=== PATIENT | male | born 1945 | race Caucasian/White ===

== ENCOUNTER 2016-09-12 09:07 | Emergency (ER) | payer OTHER ==
[~2016-09-12] VITALS: Ht 160 cm; Wt 72.0 kg
[2016-09-12 09:13] VITALS: Ht 160 cm; Wt 72.0 kg
[2016-09-12] MEDS ORDERED: IBUPROFEN 600 MG TAB PO ONE (10:30)
--- NOTE | 2016-09-12 11:13 | RADRPT ---
PROCEDURE: XR Chest. CLINICAL INDICATION: Syncope TECHNIQUE: Anterior chest x-ray. COMPARISON: None. FINDINGS: Lung markings are mildly prominent. The lungs are otherwise clear. No pleural effusion identified. There is no evidence of pneumothorax. The cardiomediastinal silhouette is unremarkable. The soft tissues are normal. Healed fracture deformities of right posterior fourth through sixth ribs are noted. Moderate degenerative change in the lumbar spine is noted. IMPRESSION: 1. No acute disease is seen in the chest. RPTAT: QQ .Jerry Sue MD, MD Date Time Electronically viewed and signed by .Jerry Sue MD, on 09/12/2016 11:12 .M/
[2016-09-12 11:28] LABS: CHLORIDE 102 mmol/L (97-110)
[2016-09-12 11:29] LABS: POTASSIUM 4.9 mmol/L (3.5-5.1); SODIUM 140 mmol/L (135-144)
[2016-09-12 11:31] LABS: ANION GAP 18 (8-16); CARBON DIOXIDE 25 mmol/L (21-31); CREATININE 1.06 mg/dl (0.61-1.24)
[2016-09-12 11:32] LABS: BLOOD UREA NITROGEN 21 mg/dl (7-20); CALCIUM 8.9 mg/dl (8.4-10.2); GLUCOSE 138 mg/dl (70-220)
[2016-09-12 11:35] LABS: HEMATOCRIT 46.4 % (42.0-52.0); HEMOGLOBIN 15.8 g/dl (14.0-18.0); MEAN CORPUSCULAR HEMOGLOBIN 33.2 pg (29.0-33.0); MEAN CORPUSCULAR HGB CONC 34.1 g/dl (32.0-37.0); MEAN CORPUSCULAR VOLUME 97.5 fl (82.0-101.0); MEAN PLATELET VOLUME 10.3 fl (7.4-10.4); PLATELET COUNT 190 10^3/UL (140-440); RED BLOOD COUNT 4.76 10^6/ul (4.70-6.10); RED CELL DISTRIBUTION WIDTH 12.8 % (11.5-14.5); WHITE BLOOD COUNT 7.1 10^3/ul (4.8-10.8)
[2016-09-12 11:36] LABS: BASOPHIL # 0.1 10^3/ul (0.0-0.1); BASOPHILS % 0.7 % (0.0-2.0); EOSINOPHILS # 0.1 10^3/ul (0.0-0.5); EOSINOPHILS % 1.6 % (0.0-7.0); LYMPHOCYTES # 1.7 10^3/ul (0.8-2.9); LYMPHOCYTES % 23.7 % (15.0-51.0); MONOCYTE # 0.9 10^3/ul (0.3-0.9); MONOCYTES % 12.1 % (0.0-11.0); NEUTROPHIL # 4.4 10^3/ul (1.6-7.5); NEUTROPHILS % 61.5 % (39.0-77.0)
[2016-09-12 11:42] LABS: TROPONIN-I < 0.012 ng/ml (0.00-0.12)
[2016-09-12] MEDS ORDERED: TRAM50TA2 PO (12:31)
--- NOTE | 2016-09-12 12:36 | ERD ---
ER Documentation Chief Complaint Date/Time DATE: 09/12/16 TIME: 12:33 Chief Complaint trip and fall 3 days ago now c/o chest pain radiates to back HPI 71-year-old male presents the emergency room complaining of right-sided chest wall pain. Patient states that 3 days ago he had a mechanical trip and fall. He did not lose consciousness but has no definitive cause as to why he fell. He fell down onto the right side of his chest has been having pain in that area since that time. He reports a pleuritic discomfort in the right side of the chest with no hemoptysis. Patient currently reports no fevers chills or sputum production. Patient has no other traumatic or medical complaints. ROS All systems reviewed and are negative except as per history of present illness. Medications Home Meds Active Scripts Tramadol HCl (Tramadol HCl) 50 Mg Tablet, 50 MG PO BID, #60 TAB Prov:YESICA MONET 09/12/16 Allergies Allergies: Coded Allergies: No Known Allergy (Unverified , 09/12/16) PMhx/Soc Medical and Surgical Hx: pt denies Medical Hx, pt denies Surgical Hx Hx Alcohol Use: No Hx Substance Use: No Hx Tobacco Use: No Smoking Status: Never smoker FmHx Noncontributory for chief complaint Physical Exam Vitals Vital Signs Date Time Temp Pulse Resp B/P Pulse Ox O2 Delivery O2 Flow Rate FiO2 09/12/16 09:13 98.1 69 18 195/80 97 Physical Exam General: well developed, well nourished in no acute distress HEENT: scalp atraumatic with no laceration or evidence of skull fracture; no signs of basilar skull fracture. Face symmetric, stable and atraumatic minimal abrasion about the face Neck: Full range of motion without discomfort or neurologic symptoms, no midline cervical spine tenderness, step-off, or evidence of significant trauma CV: Regular rate, rhythm, no murmurs appreciated Lungs: Clear to auscultation bilaterally with no chest wall trauma appreciated, chest wall stable with no crepitus. There is chest wall tenderness on the right -hand side Abdomen: soft, atraumatic and non-tender in all 4 quadrants Extremities: atraumatic with no bony tenderness or deformity in all 4 extremities, full range of motion throughout all joints; pelvis stable to both AP and lateral compression, small skin tear in the right upper extremity Back: no thoracic or lumbar midline tenderness, no step-off or evidence of significant trauma Neurologic: awake, alert and oriented, pupils equal, round and reactive to light , face symmetric, tongue midline, moving all extremities with equal and normal strength, sensory exam grossly non-focal Result Diagram: 09/12/16 1030 09/12/16 1030 Results 24 hrs Laboratory Tests Test 09/12/16 10:30 Anion Gap 18 Basophils # 0.110^3/ul Basophils % 0.7% Blood Urea Nitrogen 21mg/dl Calcium Level 8.9mg/dl Carbon Dioxide Level 25mmol/L Chloride Level 102mmol/L Creatinine 1.06mg/dl Eosinophils # 0.110^3/ul Eosinophils % 1.6% Glucose Level 138mg/dl Hematocrit 46.4% Hemoglobin 15.8g/dl Lymphocytes # 1.710^3/ul Lymphocytes % 23.7% Mean Corpuscular Hemoglobin 33.2pg Mean Corpuscular Hemoglobin Concent 34.1g/dl Mean Corpuscular Volume 97.5fl Mean Platelet Volume 10.3fl Monocytes # 0.910^3/ul Monocytes % 12.1% Neutrophils # 4.410^3/ul Neutrophils % 61.5% Nucleated Red Blood Cells # 0.010^3/ul Nucleated Red Blood Cells % 0.0/100WBC Platelet Count 04354^3/UL Potassium Level 4.9mmol/L Red Blood Count 4.7610^6/ul Red Cell Distribution Width 12.8% Sodium Level 140mmol/L Troponin I < 0.012ng/ml White Blood Count 7.110^3/ul Current Medications Medications (Trade) Dose Ordered Sig/Maddie Route PRN Reason Start Time Stop Time Status Last Admin Dose Admin Ibuprofen (Motrin) 600 mg ONCE ONCE PO 09/12/16 10:30 09/12/16 10:31 DC 09/12/16 10:54 Procedures/MDM Patient was taken to a room, seen and evaluated. Comfort measures were initiated. Diagnostic tests were ordered and reviewed. 3 LEAD RHYTHM STRIP: Normal sinus rhythm without ectopy EK lead EKG reviewed by myself: Normal Sinus Rhythm Right bundle branch block No ST elevation, depression, or T wave inversion Impression: Right bundle branch block with nonspecific changes RADIOLOGY: reviewed with the radiologist REEVALUATION: Patient remained comfortable and stable in the emergency room MEDICAL DECISION MAKING: Patient presents after a fall. From a trauma standpoint, patient has been evaluated for significant injury. Patient shows no signs of significant intrathoracic intra-abdominal neurologic or orthopedic trauma. His injuries appear to be soft tissue in nature From a medical standpoint, the fall seems to be related to a geriatric syndrome with multiple causes. I have reviewed medications and evaluated the patient for infection, electrolyte concerns, ischemia and other acute medical concerns. Patient shows no evidence of decompensated medical disease at this time with no significant acute medical symptoms and no obvious cause of the fall From a social standpoint, the patient has been evaluated for safety. Patient is ambulatory without difficulty and able to express a care plan for himself he certainly seems stable and appropriate for discharge Departure Diagnosis: Primary Impression: Fall Additional Impression: Chest wall contusion Condition: Stable Patient Instructions: Chest Wall Contusion, Fall, Mechanical Referrals: EMMA WILLAMS (PCP) Additional Instructions: Please see your doctor for a recheck in 2-3 days YESICA MONET Sep 12, 2016 12:35
== END 2016-09-12 12:44 | disposition home or self-care (01) ==
LOC: E/R 09:07
DX: S20.211A Contusion of right front wall of thorax, initial encounter (principal); W01.0XXA Fall on same level from slipping, tripping and stumbling without subsequent striking against object, initial encounter; Y92.9 Unspecified place or not applicable
CPT/HCPCS: 36415; 71010; 80048; 84484; 85025; 93005

== ENCOUNTER 2016-09-17 05:27 | Emergency (ER) | payer OTHER ==
[~2016-09-17] VITALS: Ht 170.2 cm; Wt 70.5 kg
[~2016-09-17 05:27] MED LIST: TRAM50TA2 PO
[2016-09-17 05:30] VITALS: Ht 170.2 cm; Wt 70.5 kg
[2016-09-17] MEDS ORDERED: KETOROLAC 30 MG INJ IM STA (06:05)
[2016-09-17] MEDS ORDERED: HYDROCODONE/APAP (5/325) TAB PO ONE (06:30)
--- NOTE | 2016-09-17 07:38 | RADRPT ---
PROCEDURE: CT Chest without contrast. CLINICAL INDICATION: Trauma TECHNIQUE: Spiral CT images through the chest without contrast. Coronal and sagittal reformatted images were obtained from the axial source images. The total exam CTDI equals 13.13 mGy and the tota l exam DLP equals 506.06 mGy-cm. One or more of the following dose reduction techniques were used: a utomated exposure control, adjustment of the mA and/or kV according to patient size, or use of itera tive reconstruction technique. COMPARISON: 09/12/2016 FINDINGS: Dependent subsegmental atelectasis of the lungs is present. There are scattered nonspecific patchy subpleural alveolar opacities throughout both lungs. No pneumothorax or definite pulmonary contusio n is seen. Aortic and coronary artery calcification is seen. The heart size is top normal. No def inite hilar, mediastinal, or axillary adenopathy is seen. Calcified subcarinal nodes are seen. Vis ualized portions of the upper abdomen are unremarkable. There is degenerative change of the spine. Degenerative change of the shoulders is also seen. There are acute fractures of the right lateral fourth through sixth ribs. Subtle fractures of the right lateral 3rd and 7th ribs also appear to be present. The fifth rib fracture is slightly depressed. Multiple old right rib fractures are also pr esent. No left rib fractures are seen. IMPRESSION: Fractures of the right lateral third through seventh ribs. Slight displacement of the right fifth r ib fracture. No other definite acute abnormality. Scattered nonspecific subpleural ground-glass op acities throughout the lung thompson bilaterally but no definite evidence for pulmonary contusion/aleksandar linda or pneumothorax. RPTAT: HLBE Physician Scott Date Time Electronically viewed and signed by Physician Scott on 09/17/2016 07:37 LE/
[2016-09-17] MEDS ORDERED: DOCU-144 PO (07:54)
[2016-09-17] MEDS ORDERED: HYDR-906 PO (07:54)
--- NOTE | 2016-09-17 08:28 | RADRPT ---
PROCEDURE: CT thoracic spine CLINICAL INDICATION: Trauma TECHNIQUE: Thin section spiral CT images through the thoracic spine without contrast. Multiplanar reconstructions. The CTDIvol is 26.83 mGy and the DLP is 1104.66 mGycm. COMPARISON: None FINDINGS: There are degenerative and hypertrophic changes of the thoracic spine with osteophytes and minimal e ndplate irregularities throughout. No fracture or significant listhesis is seen. No lytic or blast ic bony lesion is seen. Calcified left hilar node is seen. Atherosclerotic calcification is seen. Calcified subcarinal nodes. IMPRESSION: Degenerative change. No definite fracture or significant listhesis. RPTAT: HLBE Physician Scott Date Time Electronically viewed and signed by Alexia Bartlett Physician on 09/17/2016 08:28 HI/
--- NOTE | 2016-09-17 08:33 | RADRPT ---
PROCEDURE: CT cervical spine without contrast. CLINICAL INDICATION: Fall, neck pain TECHNIQUE: CT of the cervical spine without contrast was performed on a multidetector CT scanner, w ith multiplanar reformats. One or more of the following dose reduction techniques were used: Automa pranav exposure control, adjustment in mA and / or kV according to patient size, use of iterative recon structive technique. CTDIvol = 22 mGy and DLP = 538 mGy-cm. COMPARISON: None available. FINDINGS: No fracture or dislocation is identified. There is preservation of the lordosis of the cervical spi ne. Alignment is intact. Vertebral bodies are grossly maintained in height. There are anterior a tlantoaxial joint degenerative changes and anterior spondylosis at C4-5 through C6-7. Atherosclerot ic calcifications are noted. A chronic infarct is identified in the right temporal - occipital lobe in the MACHINERY ENGINEER territory. C2-3: The disc is maintained in height. There is posterior disk bulging without central canal steno sis or foraminal narrowing C3-4: The disc is maintained in height. There is a posterior disk/osteophyte and ligamentum flavum hypertrophy with mild central canal stenosis. There are uncovertebral osteophytes and facet arthrop athy with moderate to severe right, moderate left foraminal narrowing. C4-5: The disc is maintained in height. There is posterior disk osteophyte and ligamentum flavum hy pertrophy with mild to moderate central canal stenosis. There are uncovertebral osteophytes and fac et arthropathy with mild right, moderate left foraminal narrowing. C5-6: There is mild - moderate disk space narrowing. There is a posterior disk/osteophyte and ligam entum flavum hypertrophy with mild to moderate central canal stenosis. There are uncovertebral oste ophytes and facet arthropathy with moderate to severe right, mild-moderate left foraminal narrowing. C6-7: The disc is maintained in height. There is posterior disk osteophyte with mild central canal stenosis. There is no foraminal narrowing. C7-T1: The disc is maintained in height. No gross disk bulge or herniation is seen. There is facet arthropathy. There is no central canal stenosis or foraminal narrowing. IMPRESSION: 1. No evidence of fracture or dislocation. 2. Cervical spondylosis, with multilevel mild - moderate central canal stenoses, and multilevel for aminal narrowing outlined in detail above. 3. Chronic right temporal-occipital, MACHINERY ENGINEER territory infarct noted. RPTAT: VV .Humberto Schrader MD, Date Time Electronically viewed and signed by .Humberto Schrader MD, on 09/17/2016 08:32 .O/
--- NOTE | 2016-09-17 08:41 | ERD ---
ER Documentation Chief Complaint Date/Time DATE: 09/17/16 TIME: 08:38 Chief Complaint sp trip & fall 3 days ago landing on R side of chest, was here , back pain HPI 8-year-old male sustained a mechanical fall 3 days ago. He was seen here and had normal chest x-ray. Complains of persistent and severe pain on the right upper chest as well as the upper back. Denies any hemoptysis, shortness breath , fevers, blood. He is taking ibuprofen and tramadol without relief. ROS All systems reviewed and are negative except as per history of present illness. Medications Home Meds Active Scripts Docusate Sodium* (Colace*) 100 Mg Capsule, 100 MG PO BID, #30 CAP Prov:MALIK ESTRADA MD 09/17/16 Hydrocodone/Acetaminophen ([place] 5-325 Tablet) 1 Each Tablet, 1 TAB PO Q6H Y for PAIN, #18 TAB Prov:MALIK ESTRADA MD 09/17/16 Tramadol HCl (Tramadol HCl) 50 Mg Tablet, 50 MG PO BID, #60 TAB Prov:YESICA MONET 09/12/16 Allergies Allergies: Coded Allergies: No Known Allergy (Unverified , 09/12/16) PMhx/Soc Medical and Surgical Hx: pt denies Medical Hx, pt denies Surgical Hx History of Surgery: No Anesthesia Reaction: No Hx Neurological Disorder: No Hx Respiratory Disorders: No Hx Cardiac Disorders: Yes (HTN) Hx Psychiatric Problems: No Hx Miscellaneous Medical Probl: Yes (DM, BPH) Hx Alcohol Use: No Hx Substance Use: No Hx Tobacco Use: No Physical Exam Vitals Vital Signs Date Time Temp Pulse Resp B/P Pulse Ox O2 Delivery O2 Flow Rate FiO2 09/17/16 05:30 97.5 64 20 168/86 99 Physical Exam Const: [] Alert, [id number]. Head: Atraumatic Eyes: Normal Conjunctiva ENT: Normal External Ears, Nose and Mouth. Neck: Full range of motion..~ No meningismus. Resp: Clear to auscultation bilaterally. Tenderness in the right lateral anterior chest wall and upper back. No crepitance or erythema or deformities appreciated. Cardio: Regular rate and rhythm, no murmurs Abd: Soft, non tender, non distended. Normal bowel sounds Skin: No petechiae or rashes Back: No midline or flank tenderness Ext: No cyanosis, or edema Neur: Awake and alert Psych: Normal Mood and Affect Results 24 hrs Current Medications Medications (Trade) Dose Ordered Sig/Maddie Route PRN Reason Start Time Stop Time Status Last Admin Dose Admin Acetaminophen/ Hydrocodone Bitart ([place] (5/325)) 1 tab ONCE ONCE PO 09/17/16 06:30 09/17/16 06:31 DC 09/17/16 06:45 Ketorolac Tromethamine (Toradol) 30 mg ONCE STAT IM 09/17/16 06:05 09/17/16 06:08 DC 09/17/16 06:46 Procedures/MDM EKG: Rate/Rhythm: [Normal Sinus Rhythm] rate equals 56 QRS, ST, T-waves: [No changes consistent w/ acute ischemia] Impression: [No evidence of ischemia or arrhythmia]. Impression no acute findings on EKG CT of the chest shows fractures of the third through seventh ribs no significant displacement except for [address] cervical spine shows no fractures or dislocation CT thoracic spine shows no fracture dislocation. Patient was given [place] 5 mg by mouth and Toradol 30 mg IM. Patient has multiple rib fractures in the right side without complications of hemothorax,, pneumonia, pneumothorax, or secondary infection. Patient will be discharged home with a prescription of [place] and Colace instructions to follow- up his primary care doctor. Patient is advised to return for fevers, blood, shortness breath, new or worsening symptoms. The patient was stable with no new complaints during the ER course. Clinically, there is no current evidence to suggest meningitis, sepsis, acute abdomen, pneumonia, acute coronary syndrome , pulmonary embolism, or any other emergent condition appearing to require further evaluation or hospitalization. The patient should certainly return for any new or worsening symptoms per the aftercare instructions. They should otherwise follow-up with her primary care doctor for reevaluation this week. Departure Diagnosis: Primary Impression: Ribs, multiple fractures Encounter type: initial encounter Fracture type: closed Laterality: right Qualified Code: S22.41XA - Closed fracture of multiple ribs of right side, initial encounter Condition: Stable Patient Instructions: Rib Fracture (Broken Rib) Referrals: [facility] (PCP) Additional Instructions: TINENE 6 FRACTURAS EN COSTILLOS . REGRESA PARA FIEBRE, LEISA , NUEVA SIMPTOMAS O CON BRAN DOCTOR. MALIK ESTRADA MD Sep 17, 2016 08:40
== END 2016-09-17 08:49 | disposition home or self-care (01) ==
LOC: FTE 05:27
DX: S22.41XA Multiple fractures of ribs, right side, initial encounter for closed fracture (principal); I10 Essential (primary) hypertension; E11.9 Type 2 diabetes mellitus without complications; W18.39XA Other fall on same level, initial encounter; Y92.9 Unspecified place or not applicable
CPT/HCPCS: 71250; 72125; 72128; 93005; J1885; 96372

== ENCOUNTER 2016-12-23 06:49 | Emergency (ER) | payer OTHER ==
[~2016-12-23] VITALS: Ht 160 cm; Wt 71.0 kg
[~2016-12-23 06:49] MED LIST changes: +DOCU-144 PO; +HYDR-906 PO
[2016-12-23 06:53] VITALS: Ht 160 cm; Wt 71.0 kg
[2016-12-23] MEDS ORDERED: CEPH-443 PO (07:07)
[2016-12-23] MEDS ORDERED: SULF1TAB31 PO (07:07)
[2016-12-23] MEDS ORDERED: BEN25 PO (07:08)
--- NOTE | 2016-12-23 07:11 | ERD ---
ER Documentation Chief Complaint Date/Time DATE: 12/23/16 TIME: 07:10 Chief Complaint left ear abcess HPI Patient is a 71 year old male with PMHx of DM, HTN, HLD who presents to the ED for concerns of L ear abscess. Patient reports erythematous swollen bump to L lower ear lobe. Patient reports minimal pain. Patient denies any bleeding or discharge. Patient denies any fever or chills. Patient denies any possible insect bites. Patient does report itching. Patient denies any chest pain, shortness of breath, headaches, blurry vision, nausea, vomiting or LOC. Patient denies taking BP medications this morning. Patient states he rushed to ED to avoid wait times, thus he did not take his AM BP medications. ROS All systems reviewed and are negative except as per history of present illness. Medications Home Meds Active Scripts Diphenhydramine Hcl* (Benadryl*) 25 Mg Cap, 25 MG PO Q6, #20 CAP Prov:SHORTY WESTFALL PA-C 12/23/16 Cephalexin* (Keflex*) 500 Mg Capsule, 500 MG PO QID for 10 Days, CAP Prov:SHORTY WESTFALL PA-C 12/23/16 Sulfamethoxazole/Trimethoprim* (Bactrim Ds* Tablet) 1 Each Tablet, 1 TAB PO BID , #10 TAB Prov:SHORTY WESTFALL PA-C 12/23/16 Docusate Sodium* (Colace*) 100 Mg Capsule, 100 MG PO BID, #30 CAP Prov:MALIK ESTRADA MD 09/17/16 Hydrocodone/Acetaminophen ([place] 5-325 Tablet) 1 Each Tablet, 1 TAB PO Q6H Y for PAIN, #18 TAB Prov:MALIK ESTRADA MD 09/17/16 Tramadol HCl (Tramadol HCl) 50 Mg Tablet, 50 MG PO BID, #60 TAB Prov:YESICA MONET 09/12/16 Allergies Allergies: Coded Allergies: No Known Allergy (Unverified , 09/12/16) PMhx/Soc Medical and Surgical Hx: pt denies Surgical Hx History of Surgery: No Anesthesia Reaction: No Hx Neurological Disorder: No Hx Respiratory Disorders: No Hx Cardiac Disorders: Yes (HTN, HDL) Hx Psychiatric Problems: No Hx Miscellaneous Medical Probl: Yes (DM) Hx Alcohol Use: Yes (1-2 DRINKS/DAY) Hx Substance Use: No Hx Tobacco Use: Yes (10 CIGS/DAY) Smoking Status: Current every day smoker Physical Exam Vitals Vital Signs Date Time Temp Pulse Resp B/P Pulse Ox O2 Delivery O2 Flow Rate FiO2 12/23/16 08:04 98.4 78 16 207/91 99 Room Air 12/23/16 06:53 97.1 75 18 189/72 99 Physical Exam GENERAL: Well-developed, well-nourished male. Appears in no acute distress. HEAD: Normocephalic, atraumatic. EYES: Pupils are equally reactive bilaterally. EOMs grossly intact. No conjunctival erythema. ENT: Left external lower lobe noted to have 2 cm well defined, slightly erythematous, circular mass. Indurated. No fluctuance or warmth noted. Auditory canals clear bilaterally. No hemotympanium. TM visualized bilaterally, non- erythematous, non-bulging. Nasal septum midline. Nasal mucosa pink with no discharge. Turbinates normal. Oropharynx is pink without any tonsillar erythema or exudates. NECK: Supple. No meningismus. Normal range of motion of the neck. LUNG: Clear to auscultation bilaterally. No rhonchi, wheezing, rales or coarse breath sounds. HEART: Regular rate and rhythm. No murmurs, rubs or gallops. BACK: No midline tenderness. EXTREMITIES: Equal pulses bilaterally. No peripheral clubbing, cyanosis or edema. No unilateral leg swelling. NEUROLOGIC: Alert and oriented. Moving all four extremities without any difficulty. Normal speech. Steady gait. SKIN: Normal color. Warm and dry. No rashes or lesions. Procedures/MDM MEDICAL DECISION MAKING: This is a 71 year old male with past medical history of DM, HTN, HLD who presents with concerns of L ear abscess.. Vital signs were reviewed. Patient was afebrile. Skin exam revealed possible abscess with no areas of fluctuance noted. Incision and drainage was noted indicated at this time. Given these findings, the patients presentation is most consistent with abscess of left lower ear lobe. I have a much lower clinical concern for necrotizing fasciitis, sepsis, gangrene, Avinash-Nam syndrome, toxic epidural necrolysis, herpes zoster, viral exanthem, anaphylaxis, al fungal infection, insect bite, impetigo , dermatitis. PRESCRIPTIONS: Keflex, Bactrim, Benadryl DISCHARGE: At this time, patient is stable for discharge and outpatient management. Warm compresses advised to affected area. Wound recheck advised in 2 days. Will consider incision and drainage at that time. I have advised the patient to avoid any new products, creams or possible allergens. I have advised the patient to avoid scratching affected area. I have instructed the patient to follow-up with his/her primary care physician in 1-2 days. If symptoms persist, patient may need to see a property management supervisor for further examinations and testing. I have instructed the patient to promptly return to the ER at any time for any new or worsening symptoms including increased pain, fever, redness, swelling, warmth, difficulty breathing or vomiting. The patient and/or family expressed understanding of and agreement with this plan. All questions were answered. Home care instructions were provided. Patient's blood pressure was elevated (>120/80) but appears stable without evidence of hypertensive emergency, hypertensive urgency or end-organ failure. I had discussion with the patient about the risks of hypertension. I have advised the patient to follow up with his/her primary care physician for outpatient monitoring and treatment for hypertension in 2-3 days. I have instructed the patient to return to the ER for any new or worsening symptoms including chest pain, shortness of breath, headache, blurred vision, confusion, nausea, vomiting or LOC. Departure Diagnosis: Primary Impression: Abscess Additional Impression: Elevated blood pressure reading Condition: Stable Patient Instructions: Abscess, Antiobiotic Treatment Only Referrals: [facility] (PCP) Additional Instructions: Call your primary care doctor TOMORROW for an appointment during the next 1-2 days.See the doctor sooner or return here if your condition worsens before your appointment time. Return to the ER in 2 days for wound recheck. SHORTY WESTFALL PA-C December 23, 2016 07:11
[2016-12-23 08:04] VITALS: BP 207/91; PULSE 78; RESP 16; TEMP 98.4
== END 2016-12-23 08:05 | disposition home or self-care (01) ==
LOC: FTE 06:49
DX: H60.02 Abscess of left external ear (principal); I10 Essential (primary) hypertension; E11.9 Type 2 diabetes mellitus without complications; F17.210 Nicotine dependence, cigarettes, uncomplicated
CPT/HCPCS: 99284

== ENCOUNTER 2017-06-19 10:11 | Emergency (ER) | END 2017-06-19 12:47 | disposition home or self-care (01) | DX: H92.02 Otalgia, left ear (principal); I16.0 Hypertensive urgency; I10 Essential (primary) hypertension; E11.9 Type 2 diabetes mellitus without complications; F17.210 Nicotine dependence, cigarettes, uncomplicated; R51 Headache; R07.9 Chest pain, unspecified | CPT/HCPCS: 70450; 80053; 83880; 84484; 85025; 85610; 85730; 93005; 96374; 96375; 99285; J0360; J1200; J2270; J2405 ==

== ENCOUNTER 2017-07-23 12:45 | Emergency (ER) | payer OTHER ==
[~2017-07-23] VITALS: Ht 172.7 cm; Wt 69.9 kg
[~2017-07-23 12:45] MED LIST changes: +AMOX500C2 PO; +BEN50 PO; -DOCU-144 PO; -HYDR-906 PO; +MED4DP PO; +METO-319 PO; -TRAM50TA2 PO
[2017-07-23 12:47] VITALS: Ht 172.7 cm; Wt 69.9 kg
[2017-07-23] MEDS ORDERED: HC30CR25 TOP (14:42)
--- NOTE | 2017-07-23 15:08 | ERD ---
ER Documentation Chief Complaint Chief Complaint Patient here for medication refill HPI 72-year-old male complaining of itchy skin on the ears and scalp. Patient is presenting for request of medication refill from his previous visit. Patient's previous visit was due to ear pain and was a discharge of otitis media. Patient was given amoxicillin and Medrol Dosepak. Patient denies any ear pain at this time. Patient is only complaining of pruritic sensation to the skin around the ears. Patient does not use any medications on his skin. ROS All systems reviewed and are negative except as per history of present illness. Medications Home Meds Active Scripts Hydrocortisone* Topical (Hydrocortisone* Topical) 2.5%-28.3 Gm Cream..g., 1 APPLIC TOP BID, #1 TUB Prov:AR DAVID PA-C 07/23/17 Methylprednisolone* (Medrol* DOSE PACK) 4 Mg/Dose-Pack Tab.ds.pk, 4 MG PO . DIRECTED, #1 PACKET Prov:JONNY PALACIOS 06/19/17 Diphenhydramine Hcl* (Benadryl*) 50 Mg Cap, 50 MG PO Q6 Y for ITCHING, #20 CAP Prov:JONNY PALACIOS 06/19/17 Amoxicillin* (Amoxicillin*) 500 Mg Cap, 500 MG PO BID for 10 Days, #30 CAP Prov:JONNY PALACIOS 06/19/17 Reported Medications Metoprolol Succinate* (Toprol XL*) 50 Mg Tab.er.24h, 50 MG PO DAILY, #30 TAB 06/19/17 Allergies Allergies: Coded Allergies: No Known Allergy (Unverified , 09/12/16) PMhx/Soc History of Surgery: No Anesthesia Reaction: No Hx Neurological Disorder: No Hx Respiratory Disorders: No Hx Cardiac Disorders: Yes (HTN, HDL) Hx Psychiatric Problems: No Hx Miscellaneous Medical Probl: Yes (DM) Hx Alcohol Use: Yes (1-2 DRINKS/DAY) Hx Substance Use: No Hx Tobacco Use: Yes (10 CIGS/DAY) Smoking Status: Current every day smoker Physical Exam Vitals Vital Signs Date Time Temp Pulse Resp B/P Pulse Ox O2 Delivery O2 Flow Rate FiO2 07/23/17 12:47 98.2 84 20 155/79 98 Physical Exam GENERAL: The patient is well-appearing, well-nourished, in no acute distress HEENT: Atraumatic. Conjunctivae are pink. Pupils equal, round, and reactive to light. There is no scleral icterus. Tympanic membranes clear bilaterally. Oropharynx clear. No nystagmus or photophobia. NECK: C-spine is soft and supple. There is no meningismus. There is no cervical lymphadenopathy. CHEST: Clear to auscultation bilaterally. There are no rales, wheezes or rhonchi. HEART: Regular rate and rhythm. No murmurs, clicks, rubs or gallops. No S3 or S4. SKIN: Scaling skin around ears. No vesicles. No pustules. No foreign bodies. Procedures/MDM MDM: 72-year-old male presenting for itchy skin. I believe patient is experiencing CAT scan and would benefit from increased moisturizing use and hydrocortisone. Patient is told symptoms change or worsen to return to the ER immediately. I do not feel the patient's medications from previous visit should be refilled. Patient does not have signs of otitis media on exam. Patient is discharged with strict ER precautions and recommended to follow-up with PMD within 1-2 days for close evaluation. All questions answered at discharge Departure Diagnosis: Primary Impression: Chapped skin Condition: Stable Patient Instructions: Dermatitis, Non-Specific Additional Instructions: FOLLOW UP WITH YOUR PRIMARY CARE PHYSICIAN TOMORROW.Return to this facility if you are not improving as expected. AR DAVID PA-C Jul 23, 2017 15:08
== END 2017-07-23 14:57 | disposition home or self-care (01) ==
LOC: FTE 12:45
DX: T69.8XXA Other specified effects of reduced temperature, initial encounter (principal); I10 Essential (primary) hypertension; E11.9 Type 2 diabetes mellitus without complications; F17.210 Nicotine dependence, cigarettes, uncomplicated; X31.XXXA Exposure to excessive natural cold, initial encounter; Z76.0 Encounter for issue of repeat prescription
CPT/HCPCS: 99282

== ENCOUNTER 2018-02-28 13:18 | Emergency (ER) | END 2018-02-28 17:05 | disposition home or self-care (01) ==

== ENCOUNTER 2018-07-18 12:22 | Emergency (ER) | END 2018-07-18 18:19 | disposition home or self-care (01) ==

== ENCOUNTER 2018-11-25 13:13 | Emergency (ER) | payer OTHER ==
[~2018-11-25] VITALS: Ht 152.4 cm; Wt 89.0 kg
[~2018-11-25 13:13] MED LIST changes: +ACET325T33 PO; +HC30CR25 TOP; +IBUP-1542 PO
[2018-11-25 13:15] VITALS: Ht 152.4 cm; Wt 89.0 kg
[2018-11-25] MEDS ORDERED: CEPH-443 PO (15:14)
[2018-11-25 15:27] VITALS: BP 122/62; PULSE 63; RESP 16
--- NOTE | 2018-11-25 16:53 | ERD ---
ER Documentation Chief Complaint Chief Complaint DYSURIA X 3 DAYS HPI History of Present Illness: 73-year-old male with past medical history of hypertension, diabetes, BPH coming today with complaint of dysuria for 3 days. Associated symptoms include suprapubic pain. Patient reports that urine has been so painful that he has been unable to sleep at night. Patient denies any other associated symptoms. Denies fever, chills, malaise. At home pharmacological/nonpharmacological treatment for symptoms: denies Denies social concerns; Denies recent foreign travel ROS All systems reviewed and are negative except as per history of present illness. Medications Home Meds Active Scripts Cephalexin* (Keflex*) 500 Mg Capsule, 500 MG PO QID for URINE INFECTION for 7 Days, CAP Prov:SILVIA BETH NP 11/25/18 Ibuprofen* (Motrin*) 600 Mg Tab, 600 MG PO Q6H PRN for PAIN AND OR ELEVATED TEMP, #20 TAB Prov:WILLY ARCE MD 07/18/18 Acetaminophen* (Tylenol*) 325 Mg Tablet, 2 TAB PO Q6 PRN for PAIN AND OR ELEVATED TEMP, #30 TAB Prov:FABIÁN GILL PA-C 02/28/18 Hydrocortisone* Topical (Hydrocortisone* Topical) 2.5%-28.3 Gm Cream..g., 1 APPLIC TOP BID, #1 TUB Prov:AR DAVID PA-C 07/23/17 Methylprednisolone* (Medrol* DOSE PACK) 4 Mg/Dose-Pack Tab.ds.pk, 4 MG PO . DIRECTED, #1 PACKET Prov:JONNY PALACIOS MD 06/19/17 Diphenhydramine Hcl* (Benadryl*) 50 Mg Cap, 50 MG PO Q6 PRN for ITCHING, #20 CAP Prov:JONNY PALACIOS MD 06/19/17 Amoxicillin* (Amoxicillin*) 500 Mg Cap, 500 MG PO BID for 10 Days, #30 CAP Prov:JONNY PALACIOS MD 06/19/17 Reported Medications Metoprolol Succinate* (Toprol XL*) 50 Mg Tab.er.24h, 50 MG PO DAILY, #30 TAB 06/19/17 Allergies Allergies: Coded Allergies: No Known Allergy (Unverified , 09/12/16) PMhx/Soc History of Surgery: No Anesthesia Reaction: No Hx Neurological Disorder: No Hx Respiratory Disorders: No Hx Cardiac Disorders: Yes (HTN, HDL) Hx Psychiatric Problems: No Hx Miscellaneous Medical Probl: Yes (DM) Hx Alcohol Use: Yes (1-2 DRINKS/DAY) Hx Substance Use: No Hx Tobacco Use: Yes (10 CIGS/DAY) Smoking Status: Never smoker FmHx Family History: diabetes Physical Exam Vitals Vital Signs Date Temp Pulse Resp B/P (MAP) Pulse Ox O2 O2 Flow FiO2 Time Delivery Rate 11/25/18 98.2 63 16 122/62 100 Room Air 15:27 (82) 11/25/18 98.2 78 18 126/58 99 13:15 (80) Physical Exam Const: No acute distress Head: Atraumatic Eyes: Normal Conjunctiva ENT: Normal External Ears, Nose and Mouth. Neck: Full range of motion. No meningismus. Resp: Clear to auscultation bilaterally Cardio: Regular rate and rhythm, no murmurs Abd: Soft, suprapubic tenderness, non distended. Normal bowel sounds. No grimacing noted during examination. Skin: No petechiae or rashes Back: No midline or flank CVA tenderness Ext: No cyanosis, or edema Neur: Awake and alert Psych: Normal Mood and Affect Results 24 hrs Laboratory Tests Test 11/25/18 13:47 Urine Color BRIAN Urine Clarity CLOUDY Urine pH 5.0 Urine Specific [place] 1.019 Urine Ketones TRACE mg/dL Urine Nitrite NEGATIVE mg/dL Urine Bilirubin NEGATIVE mg/dL Urine Urobilinogen 1+ mg/dL Urine Leukocyte Esterase 2+ Penelope/ul Urine Microscopic RBC 4 /HPF Urine Microscopic WBC 11 /HPF Urine Mucus FEW /HPF Urine Hemoglobin 1+ mg/dL Urine Glucose NEGATIVE mg/dL Urine Total Protein NEGATIVE mg/dl Procedures/MDM ED course includes a thorough examination and history. Medications: -- Imaging: -- Labs: Urinalysis Low suspicion for life-threatening medical emergency. Low suspicion for genitourinary or acute abdominal emergency that requires hospitalization or immediate surgical intervention. Low suspicion for an systemic infectious process. Patient afebrile and hemodynamically stable. Otherwise healthy patient presenting with constellation of symptoms likely representing uncomplicated urinary tract infection as characterized by history, physical exam finding, lab findings.Urinalysis reveals cloudy urine, positive leukocyte esterase, positive white blood cells, positive hemoglobin. No respiratory distress, otherwise relatively well appearing and nontoxic. Patient educated on diagnoses, prescriptions, follow-up care, return precautions. Strict return precautions given for worsening condition; questions answered discharge. Disposition for discharge with followup in 2 days with PCP/clinic. Departure Diagnosis: Primary Impression: Urinary tract infection Urinary tract infection type: site unspecified Hematuria presence: with hematuria Qualified Codes: N39.0 - Urinary tract infection, site not specified; R31.9 - Hematuria, unspecified Condition: Stable Patient Instructions: Understanding Urinary Tract Infections (UTIs) Referrals: [facility] YOU HAVE RECEIVED A MEDICAL SCREENING EXAM AND THE RESULTS INDICATE THAT YOU DO NOT HAVE A CONDITION THAT REQUIRES URGENT TREATMENT IN THE EMERGENCY DEPARTMENT. FURTHER EVALUATION AND TREATMENT OF YOUR CONDITION CAN WAIT UNTIL YOU ARE SEEN IN YOUR DOCTORS OFFICE WITHIN THE NEXT 1-2 DAYS. IT IS YOUR RESPONSIBILITY TO MAKE AN APPOINTMENT FOR FOLOW-UP CARE. IF YOU HAVE A PRIMARY DOCTOR --you should call your primary doctor and schedule an appointment IF YOU DO NOT HAVE A PRIMARY DOCTOR YOU CAN CALL OUR PHYSICIAN REFERRAL HOTLINE AT IF YOU CAN NOT AFFORD TO SEE A PHYSICIAN YOU CAN CHOSE FROM THE FOLLOWING [facility] [address] [facility]. [facility] [address] [facility] [place] [facility] [facility] [address] [facility] [facility] [address] [facility] [facility] [address] [facility]. [facility]. [address] [facility]. [facility] YOU HAVE RECEIVED A MEDICAL SCREENING EXAM AND THE RESULTS INDICATE THAT YOU DO NOT HAVE A CONDITION THAT REQUIRES URGENT TREATMENT IN THE EMERGENCY DEPARTMENT. FURTHER EVALUATION AND TREATMENT OF YOUR CONDITION CAN WAIT UNTIL YOU ARE SEEN IN YOUR DOCTORS OFFICE WITHIN THE NEXT 1-2 DAYS. IT IS YOUR RESPONSIBILITY TO MAKE AN APPOINTMENT FOR FOLOW-UP CARE. IF YOU HAVE A PRIMARY DOCTOR --you should call your primary doctor and schedule and appointment IF YOU DO NOT HAVE A PRIMARY DOCTOR YOU CAN CALL OUR PHYSICIAN REFERRAL HOTLINE AT . IF YOU CAN NOT AFFORD TO SEE A PHYSICIAN YOU CAN CHOSE FROM THE FOLLOWING [facility] INSTITUTIONS: [facility] [address] [place] [address] [facility] [address] [place] [address] [facility] [address] [place] [address] Additional Instructions: Muchas david por permitirnos participar en parrish cuidado. Parrish reji y seguridad es nuestra principal prioridad en [facility]. Es importante leer todas las instrucciones de jennifer y la educacin que se proporcionan en parrish paquete de jennifer. Llame a parrish mdico de atencin primaria MAANA para kimberly janice melinda los prximos 2 a 4 jean y lleve toda la informacin y los medicamentos recetados. Llene las recetas y siga exactamente las instrucciones de la etiqueta. -Cefalexina mik antibitico; tome megha medicamento todos los jean cada 6 horas mik se indica en parrish receta. Debe completar todo el curso de tratamiento que figura en parrish receta. Basco es muy importante porque se necesitan varios jean para eliminar las bacterias que causan la infeccin. Si los sntomas empeoran y parrish proveedor no est disponible, regrese inmediatamente al Departamento de Emergencias --- Thank you very much for allowing us to participate in your care. Your health and safety is our top priority at [facility]. It is important to read all discharge instructions and education provided in your discharge packet. Call your primary care doctor TOMORROW for an appointment during the next 2-4 days and bring all the information and medications prescribed. Have prescriptions filled and follow precisely the directions on the label. -Cephalexin as an antibiotic; take this medication every day every 6 hours as listed on your prescription. You must complete the entire course of treatment that is listed on your prescription this is very important because it takes a certain number of days to kill the bacteria that is causing the infection. If the symptoms get worse and your provider is unavailable, return to the Emergency Department immediately. SILVIA BETH NP Nov 25, 2018 16:53
== END 2018-11-25 15:29 | disposition home or self-care (01) ==
LOC: FTE 13:13
DX: N39.0 Urinary tract infection, site not specified (principal); I10 Essential (primary) hypertension; E11.9 Type 2 diabetes mellitus without complications; Z87.891 Personal history of nicotine dependence
CPT/HCPCS: 81001; 99283